=== PATIENT | female | born 1990 | race Caucasian/White ===

== ENCOUNTER 2023-08-18 07:15 | Inpatient (IN) | payer SELFPAY, OTHER ==
[2023-08-18] VITALS (19 sets, daily range): BP systolic 97–125; BP diastolic 53–71; PULSE 67–93; RESP 16; TEMP 36.3–36.8; O2SAT 97–99; BMI 23.4
[2023-08-18] MEDS: Lactated Ringers 1,000 ML 50 ML IV (07:45)
[2023-08-18 08:10] LABS: Absolute Neutrophil Count 7.8 X10^3/uL (2.0-7.7); Basophil# 0.02 X10^3/uL; Basophil% 0.2 % (0-1); Eosinophil# 0.22 X10^3/uL; Eosinophils% 2.1 % (0-5); Hemoglobin 11.1 g/dL (12.0-15.0); Lymphocyte % 17.1 % (19-41); Mean Corp Hgb Conc 32.6 g/dL (32-36); Mean Corpuscular Hgb 30.6 pg (27.0-32.0); Mean Corpuscular Volume 93.7 fL (81-99); Mean Platelet Vol. 9.8 fl (6.2-12.0); Monocyte# 0.63 X10^3/uL; NRBC Flagged by Analyzer 0 % (0-5); Neutrophil % 73.9 % (47-70); Platelet Count 213 K/mm3 (150-450); RBC Distribution Width CV 13.7 % (11.6-14.6); RBC Distribution Width SD 47.2 fl (35.1-43.9); Red Blood Count 3.63 M/mm3 (4.2-5.4); White Blood Count 10.5 K/mm3 (4.4-11.0)
--- NOTE | 2023-08-18 08:18 | PCM.HP.OB ---
HPI - General General Date of Admission: 08/18/23 Date of Service: 08/18/23 Chief Complaint: contraction HPI Narrative OLESYA REDDY, is a 33 F 8 para 7 who presents with contractions starting last night. They decreased in intensity this morning but then started to pick back up again. She denies any vaginal bleeding or leaking of fluid. Her is complicated date by history of previous abruption with her last that required a section. Her 6 previous deliveries before that were all full-term vaginal deliveries without complication. Largest vaginal delivery was 9 pounds 15 ounces. Past medical history is significant for hypothyroidism, and history of anemia. Maternal Data Information Final DESIRE: 08/16/23 Gestational age: 40 2/7 PFSH PFS Home Medications docosahexaenoic acid 1 cap PO DAILY nutrition 08/18/23 [History Last Taken 08/17/23 08:00 1] ferrous sulfate 325 mg (65 mg iron) tablet (Feosol) 325 mg PO BID anemia 08/18/23 [History Last Taken 08/17/23 23:30 325 mg] levothyroxine 50 mcg tablet (Synthroid) 50 mcg PO DAILY hypothyroid 08/18/23 [History Last Taken 08/17/23 06:00 50 mcg] Allergy/AdvReac Type Severity Reaction Status Date / Time No Known Allergies Allergy Verified 08/18/23 02:56 ROS Constitutional Constitutional: Denies fatigue, fever(s) or malaise Eyes Eyes: Denies change in vision ENT HEENT: Denies dizziness or headache(s) Cardiovascular Cardiovascular: Denies chest pain, dyspnea or lightheadedness Respiratory/Chest Respiratory/Chest: Denies cough or dyspnea Gastrointestinal Gastrointestinal: Denies change in bowel habits Genitourinary Genitourinary: Denies burning urination or genital lesions Integumentary Integumentary: Denies rash Neurologic Neurologic: Denies confusion, dizziness, headache(s), numbness or weakness Vital Signs Vital Signs Vital Signs: 08/18/23 07:19 08/18/23 07:19 Pulse Rate 87 Blood Pressure 108/67 BP Systolic 108 BP Diastolic 67 Weight Weight: 63.957 kg Body Mass Index (BMI) 23.4 Physical Exam Narrative Soft large varicosities in the vulvar and upper leg area Const alert and no apparent distress General Appearance: cooperative HEENT normocephalic Resp normal respiratory effort Cardio regular rate GI soft to palpation GI Narrative: gravid, nontender, appropriate for gestational age Extremity no calf tenderness General Extremity: edema Skin no wounds Rashes: No rashes noted Psych activity/motor behavior normal Labs Labs Labs: Blood Type Pending Antibody Screen Pending Hct 34.0 % (37-47) L Hgb 11.1 g/dL (12.0-15.0) L Syphilis Total Ab Pending Assessment & Plan (1) 40 weeks gestation of : PLAN: Estimated weight is less than 4500 g splint clinically and pelvis clinically at what to expect vaginal delivery. Risk benefits alternatives to trial of labor him discussed with the patient, her questions were answered to her satisfaction she desires to proceed. Consent was signed. In prodromal labor. Discussed with patient option of trial of Pitocin or trial of artificial rupture membranes to see if this will help augment labor. Patient elects for augmentation with spontaneous rupture membranes. OR team is aware of [place] patient on the unit. May use routine pain control measures as indicated and as needed. (2) Grand multipara in labor: (3) Encounter for trial of labor: (4) Previous delivery, antepartum:
[2023-08-18 09:03] LABS: Syphilis Antibodies Non-reactive
[2023-08-18 10:46] LABS: HIV - WCH Non-Reactive (Nonreactive); Hepatitis C Antibody Non-Reactive (Nonreactive)
[2023-08-18] MEDS: Oxytocin 10 UNITS/ML Vial IM (12:22)
--- NOTE | 2023-08-18 12:31 | EX.PCM.OBRPT ---
Assessment & Plan (1) (vaginal after ): Maternal Data Information Final DESIRE: 08/16/23 Gestational age: 40 2/7 Vaginal Delivery Maternal Presentation Maternal Presentation: Active Labor Operative Information Date of Procedure: 08/18/23 Pre-Operative Diagnosis: labor, previous c/s Post-Operative Diagnosis: same Surgery / Procedure Performed: Type of Anesthesia: None Special Medications: none Drain: - (none) Estimated Blood Loss: 200 Time of Delivery: 12:17 Findings Description of Procedure: A vigorous female was delivered WARD over an intact perineum. A loose nuchal cord ?1 was easily reduced. The remainder the infant was delivered with maternal pushing and gentle traction only in less than 15 seconds. The Pitocin infusion was initiated for active management of the third stage. The cord was clamped and cut after cord pulsations ceased. The infant was attended to by the waiting nursing staff. The placenta was delivered spontaneously and intact. The cervix and vagina were intact. Sponge and needle counts were correct. A vaginal sweep was completed by me. Presentation: WARD Amniotic Membrane Rupture Type: Artificial Amniotic Fluid Description: Clear Placental Delivery Description: Spontaneous Placenta Disposition: [facility] Cord Vessel Description: 3 Vessels Cord Entanglement: Around neck x 1, loose Nuchal Cord Compression: Without compression A Gender: Female (Catherine ) (1 minute): 8 (5 minute): 9 Delayed Cord Clamping: Yes Post Vaginal Delivery Medications Given After Delivery: IV Pitocin and IM Pitocin Episiotomy Description: None Laceration: None Complication Complications: None
[2023-08-18] MEDS: Oxytocin 15 Units/NS 250ml 15 UNITS/250 ML IV.SOLN 83 UNITS IV (12:40)
[2023-08-18] MEDS: Acetaminophen 500 MG Tablet 1000 MG PO (15:01)
[2023-08-19 00:10] VITALS: BP 95/57; PULSE 66; RESP 16; TEMP 36.7; O2SAT 95
[2023-08-19] MEDS: Ibuprofen 600 MG Tablet PO (01:40)
[2023-08-19 04:00] VITALS: BP 97/66; PULSE 66; RESP 16; TEMP 37.2; O2SAT 97
[2023-08-19] MEDS: Levothyroxine 50 MCG Tablet PO (06:34)
[2023-08-19 08:30] VITALS: BP 104/69; PULSE 75; RESP 16; TEMP 37.1
--- NOTE | 2023-08-19 10:06 | PCM.PN.OB ---
Subjective Subjective pain well controlled, average lochia Objective Data Objective Data Vital Signs: Vital Signs Temp Pulse Resp BP Pulse Ox O2 Del Method 98.7 F 75 16 104/69 97 Room Air 08/19/23 08:30 08/19/23 08:30 08/19/23 08:30 08/19/23 08:30 08/19/23 04:00 08/19/23 04:00 Oxygen Delivery Method Room Air Weight: 63.957 kg Body Mass Index (BMI) 23.4 Intake & Output: Intake and Output for Last 24 Hours 08/17/23 08/18/23 08/19/23 23:59 23:59 23:59 Intake Total 495.83 / 495.83 Output Total 650 / 650 Balance -154.17 / -154.17 Lab / Micro Data 08/18/23 07:40 Labs: Laboratory Results - last 24 hr 08/18/23 07:40: Hepatitis C Antibody Non-Reactive, HIV 1&2 Antibody Non-Reactive Physical Exam Const alert and no apparent distress Narrative: Fundus firm, below umbilicus. Assessment & Plan (1) (vaginal after ): PLAN: PPD#1 s/p . doing well. Desires d/c home today.
--- NOTE | 2023-08-19 10:07 | PCM.DC.SUM ---
Providers Date of Admission: 08/18/23 Primary Care Physician: Dr. Donn Lopez MD Reason For Visit: VAGINAL DELIVERY Diagnosis Discharge Diagnosis (1) (vaginal after ): Status: Acute Code(s): O34.219 - Maternal care for unspecified type scar from previous delivery Plan: PPD#1 s/p . doing well. Desires d/c home today. Medications at Discharge Home Medications docosahexaenoic acid 1 cap PO DAILY nutrition 08/18/23 ferrous sulfate 325 mg (65 mg iron) tablet (Feosol) 325 mg PO BID anemia 08/18/23 levothyroxine 50 mcg tablet (Synthroid) 50 mcg PO DAILY hypothyroid 08/18/23 Hospital Course Operations None Procedures None Summary of Care Provided Minutes Spent on Discharge: 14 Hospital Course: 33-year-old grand multiparity female admitted at 40 weeks gestation. On 08/18/2023 she had a spontaneous vaginal delivery. She had a previous section with her last delivery. Her delivery was uncomplicated. By day #1 the was breast-feeding and doing well. She was discharged home with routine instructions and follow-up Weight / BMI Weight Weight: 63.957 kg Body Mass Index (BMI) 23.4 ABG / Lab / Microbiology Data 08/18/23 07:40 Laboratory: Laboratory Results - last 24 hr 08/18/23 07:40: Hepatitis C Antibody Non-Reactive, HIV 1&2 Antibody Non-Reactive D/C Instructions Discharge Diet: No restrictions May resume sexual activity in: 6 weeks Call your doctor if your incision/area has: Continuous Slow Oozing, Sudden Increased Bleeding, Foul Smelling Discharge and Swelling at the incision site Call your doctor if you observe: Fever of 101 or Higher and Inability to urinate Please Follow Up With: Catherine Russell MD When: Follow up with our office in 1-2 and 6 weeks or as needed. [phone] Meaningful Use Info Meaningful Use Diagnoses (Choose all that apply): None applicable Discharge Plan Admission Admit Date/Time: 08/18/23 07:15 Primary Reason for Your Visit: Vaginal after delivery Attending Provider: Catherine Russell Primary Care Provider: Donn Lopez Discharge Orders/Prescriptions Prescriptions: No Action levothyroxine [Synthroid] 50 mcg tablet 50 mcg PO DAILY docosahexaenoic acid [ DHA] 1 cap PO DAILY ferrous sulfate [Feosol] 325 mg (65 mg iron) tablet 325 mg PO BID Referrals / Follow Up: Donn Lopez MD [Primary Care Provider] - Disposition Disposition (needs filled in before D/C Order can be placed): Home, Self Care
[2023-08-19 14:15] VITALS: BP 95/64; PULSE 72; RESP 16; TEMP 37.1; O2SAT 96
--- NOTE | 2023-08-19 16:03 | CASEMGMT ---
Social Work Assessment Labor and Delivery Unit Patient Address:[address] [place] [address] [place] [address] Phone number: [phone] Date of Referral: 08/18/23 Time of Referral:? [id number] Referred By: Catherine Russell Date of Intervention: 08/19/23 Time of Intervention:? 1529 Reason for Referral:? history of depression Sw completed chart review and acknowledges social work consult due to maternal history of depression. Sw presented to bedside and introduced self to mother of baby (LEIDY Tovar). Sw explained reason for sw involvement and completed psychosocial assessment. History obtained from: medical records and mother of baby (GUY)??? Household composition: Currently residing in the family home is MOB, father of baby (JACOB- Luis Miguel), baby and their 7 other children: Cliff (10 y/o), Leigh (9 y/o), Najma (8 y/o), Elver (6 y/o), Kendal (5 y/o), Aileen (3 y/o) and Cholo (1). GUY reports that housing is safe and adequate, no concerns. Patient's parent/guardian status:? ?GUY states that she and FOGarrison have been together for 11.5 years. They met because of mutual family members wedding. GUY denies any concerns regarding domestic violence or intimate partner violence. Medical History: GUY is gavida 8, para 7- now 8. GUY delivered baby via vaginal delivery on 08/18/23 at 40 weeks gestation. GUY received care with [facility]. Baby girl, Catherine, was born weighing 7lb and 13oz. GUY is breast feeding and reports that that is going well. Baby will be seen by Dr. Donn Lopez for pediatrics. Educational Status:? Both parents completed school through the 8th grade. 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 Supplies: GUY states that she has everything that she needs for baby, including: car seat, safe sleep space, clothes, diapers, wipes. Childcare/Caregiver(s):? MOB will be the primary caregiver to baby, along with help from FOB when he is not at work. Transportation: MOB reports that they use a horse and buggy for most of their transportation, but will use a contract driver for doctors appointments when necessary. ?? Programs/Agencies Involved: ??None? Children Services/Legal Issues:??No history of involvement, no issues or concerns warranting a referral at this time. ? Behavioral Health Issues: ??Mental Health History:?GUY states that JACOB does not have a mental health history. MOB reports that she has struggled with baby blues in the past. MOB states that her symptoms including feeling overwhelmed and on edge. MOB denies pharmacological assistance with symptoms. MOB states that her symptoms only lasted a couple of days to a couple of weeks. MOB reports that she drinks a tea and takes an all natural supplement to help her mood. ?? Substance Use History:?None? Family History:??none??? Drug Screens: ??No urine screens observed in chart review. Family/Social Stressors:?MOB denies Support Systems: MOB states that she has a lot of family who are supportive. Depression/Shaken Baby/Safe Sleeping:? Sw educated MOB on signs and symptoms of baby blues and depression. Sw provided literature for MOB to review. Sw encouraged MOB to reach out to family members or friends who have also struggled with their mental health during the journey. MOB stated that she does have family she can talk to. MOB was understanding of recommendations. Sw educated MOB on shaken baby prevention and ABCs of safe sleep. MOB expressed understanding. ASSESSMENT:?MOB and baby are admitted following labor and delivery. MOB was quiet during assessment, sometimes slow to answer questions asked. MOB did not elaborate on answers. MOB states that she has everything that she needs for baby, along with supports. PLAN:? MOB and baby to be discharged on this date when medically cleared ?No other services requested or indicated. Ashley Maria, CAGER OPERATOR, EXCELLENCE CONSULTANT
--- NOTE | 2023-08-23 15:52 | NURSING ---
Patient's called to follow up as follow up phone call, family doesn't have a phone. Baby has been eating every 3 hours and he reports that both mother and baby are doing very well, no complaints, no questions, no concerns. Bleeding okay per patient's .
== END 2023-08-19 16:15 | disposition home or self-care (01) | DRG 807 ==
LOC: WPOUT 07:17 → WP 07:17
PROVIDERS: Admitting Provider Obstetrics & Gynecology; PCP Family Medicine; Referring Provider Obstetrics & Gynecology; Visit Provider Obstetrics & Gynecology
DX: O34.219 Maternal care for unspecified type scar from previous cesarean delivery (principal); Z37.0 Single live birth; O69.81X0 Labor and delivery complicated by cord around neck, without compression, not applicable or unspecified; Z3A.40 40 weeks gestation of pregnancy
CPT/HCPCS: 59025; 59050; 85025; 86703; 86780; 86803; 86850; 86900; 86901; 99221; J7120; G0378